=== PATIENT | female | born 1940 | race Caucasian/White ===

== ENCOUNTER 2017-11-14 10:13 | Emergency (ER) | payer MEDICARE, BC ==
--- NOTE | 2017-11-14 10:35 | EDM.PDOC ---
ED HPI GENERAL MEDICAL PROBLEM - General Chief Complaint: Head Injury Stated Complaint: [facility] Time Seen by Provider: 11/14/17 10:24 Source of Information: Reports: Patient, EMS History Limitations: Reports: No Limitations - History of Present Illness INITIAL COMMENTS - FREE TEXT/NARRATIVE: The patient comes in by [facility] ambulance for a fall. She was at [facility] in [place]. They have a Wednesday morning service. She was going around to let her mother out and she tripped on the curb and fall. She hit her head and landed on her right wrist and right knee. She had no LOC. She has no neck pain, chest pain or abdominal pain. She has some tenderness to the right forehead. There is a superficial laceration above her right upper eyelid. She has abrasions to her right hand with some ecchymosis to the right volar wrist but no edema and no pain upon palpation. She is not on any blood thinners. Onset: Sudden Duration: Minutes: Location: Reports: Head, Upper Extremity, Right (hand) Quality: Reports: Ache Severity: Mild Improves with: Reports: None Worsens with: Reports: None Context: Reports: Trauma (She tripped on a curb and fell) Associated Symptoms: Reports: Headaches (Mild ache or tenderness). 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, Dressing(s) Right Anterior Head Pain Score (Numeric/FACES): 1 - Related Data Allergies Allergy/AdvReac Type Severity Reaction Status Date / Time bupropion [From Wellbutrin] Allergy Cannot Verified 11/14/17 10:34 Remember lisinopril Allergy Cannot Verified 11/14/17 10:34 Remember Penicillins Allergy Rash Verified 11/14/17 10:34 trazodone Allergy Cannot Verified 11/14/17 10:34 Remember ED ROS GENERAL - Review of Systems Review Of Systems: See Below Constitutional: Reports: No Symptoms HEENT: Reports: Other (Superficial) Respiratory: Reports: No Symptoms Cardiovascular: Reports: No Symptoms Endocrine: Reports: No Symptoms GI/Abdominal: Reports: No Symptoms : Reports: No Symptoms Musculoskeletal: Reports: Other (abrasions to the right hand) ED EXAM, HEAD INJURY - Physical Exam Exam: See Below Exam Limited By: No Limitations General Appearance: Alert, No Apparent Distress Head: Other (Edema and ecchymosis to the right forehead with a superficial laceration to the upper eyelid) Ears: Normal External Exam Nose: Normal Inspection Throat/Mouth: Normal Inspection Neck: Non-Tender, Normal Alignment, Normal Inspection Respiratory: No Respiratory Distress, Lungs Clear, Normal Breath Sounds Cardiovascular: Regular Rate, Rhythm, No Edema, No Murmur GI/Abdominal Exam: Soft, Non-Tender, No Organomegaly, No Mass Extremities: Other (Abrasions to the right hand. An area of ecchymosis to the volar wrist on the right but no pain upon palpation or edema noted.) Neurologic: No Motor/Sensory Deficits, Alert, Oriented x 3 Course - Vital Signs Last Recorded V/S: Last Vital Signs Temp 96.6 F 11/14/17 10:19 Pulse 80 11/14/17 10:19 Resp 16 11/14/17 10:19 BP 186/73 H 11/14/17 10:19 Pulse Ox 95 11/14/17 10:19 - Orders/Labs/Meds Orders: Active Orders 24 hr Category Date Time Status Head wo Cont [CT] Stat Exams 11/14/17 10:29 Taken - Re-Assessments/Exams Free Text/Narrative Re-Assessment/Exam: 11/14/17 10:37 I have ordered a CT of her head. 11/14/17 11:[address] shows extracalvarial soft tissue swelling anteriorly on the right. No acute intracranial hemorrhage. The laceration to the upper eyelid is very superficial and I do not feel it needs sutures or adhesive. Nothing would be gained from doing that. Departure - Departure Time of Disposition: 11:45 Disposition: Home, Self-Care 01 Condition: Good Clinical Impression: Fall Qualifiers: Encounter type: initial encounter Qualified Code(s): W19.XXXA - Unspecified fall, initial encounter Contusion of forehead Qualifiers: Encounter type: initial encounter Qualified Code(s): S00.83XA - Contusion of other part of head, initial encounter Laceration, eyelid, right Qualifiers: Encounter type: initial encounter Qualified Code(s): S01.111A - Laceration without foreign body of right eyelid and periocular area, initial encounter Abrasion of right hand Qualifiers: Encounter type: initial encounter Qualified Code(s): S60.511A - Abrasion of right hand, initial encounter - Discharge Information Forms: ED Department Discharge Additional Instructions: Ice your head for 15 minutes 3 times per day for 3 days. Sleep with your head elevated tonight. That may help with the swelling. Wash the laceration and abrasions with warm soapy water 2 times per day and apply antibiotic ointment after. Please return if you are worse such as more pain. - My Orders Last 24 Hours: My Active Orders 11/14/17 10:29 Head wo Cont [CT] Stat - Assessment/Plan Last 24 Hours: My Active Orders 11/14/17 10:29 Head wo Cont [CT] Stat
[2017-11-14] MEDS ORDERED: Acetaminophen 325 MG Tab PO ONE (12:05)
--- NOTE | 2017-11-15 13:12 | CT ---
Head CT Technique: Multiple axial sections through the brain were obtained. Intravenous contrast was not utilized. Comparison: No previous intracranial imaging. Findings: Ventricles along with basal cisterns and sulci over the convexities are mildly prominent. Very minimal diminished density is noted within portions of the periventricular white matter compatible with small vessel ischemic demyelination change. No other abnormal parenchymal densities are seen. No evidence of intracranial hemorrhage. No midline shift or mass effect is seen. Bone window settings show no acute calvarial abnormality. Soft tissue swelling is noted within the right frontal scalp and upper right periorbital region. Impression: 1. Soft tissue swelling within the right frontal scalp and upper right periorbital region. 2. Mild senescent change. 3. No acute intracranial abnormality is seen. No acute calvarial abnormality is identified. Diagnostic code #2 I agree with preliminary report issued by [facility] [facility] ([facility] preliminary report dictated on 11/14/17, 12:30 PM Central Time)
== END 2017-11-14 12:20 | disposition home or self-care (01) ==
LOC: JD.ED 10:13
DX: S01.111A Laceration without foreign body of right eyelid and periocular area, initial encounter (principal); S00.83XA Contusion of other part of head, initial encounter; S60.511A Abrasion of right hand, initial encounter; W19.XXXA Unspecified fall, initial encounter; Z88.0 Allergy status to penicillin; Z88.8 Allergy status to other drugs, medicaments and biological substances; W01.198A Fall on same level from slipping, tripping and stumbling with subsequent striking against other object, initial encounter
CPT/HCPCS: 70450; 99284; A9270; 99283